=== PATIENT | male | born 1935 | race Caucasian/White ===

== ENCOUNTER 2025-01-24 11:18 | Day surgery (SDC) | payer MEDICARE, OTHER ==
[2025-01-20 15:33] VITALS: BMI 32.8
[~2025-01-24 11:18] MED LIST: SODIUM CHLORIDE 0.9% 1,000 ML IV SCH
[2025-01-24 11:52] VITALS: RESP 16; TEMP 97.6
[2025-01-24] MEDS: IV FLUID CONTINUATION 1,000 ML IV ONE (11:57)
[2025-01-24 11:59] LABS: Basophils # (A) 0.03 10*3/uL (0.00-0.10); Basophils % (A) 0.4 %; Eosinophils # (A) 0.09 10*3/uL (0.04-0.35); Eosinophils % (A) 1.1 %; HCT 35.2 % (39.6-50.0); HGB 11.1 g/dL (13.0-17.0); Lymphocytes # (A) 0.85 10*3/uL (0.90-5.00); Lymphocytes % (A) 10.4 %; MCH 29.8 pg (27.0-32.0); MCHC 31.5 g/dL (32.0-37.0); MCV 94.4 fL (80.0-97.0); Mean Platelet Volume 9.3 fL (9.5-12.2); Monocytes # (A) 0.94 10*3/uL (0.20-1.00); Monocytes % (A) 11.5 %; Neutrophils # (A) 6.22 10*3/uL (1.80-7.70); Neutrophils % (A) 76.2 %; Platelet Count 292 10*3/uL (140-440); RBC 3.73 10*6/uL (4.40-5.60); WBC 8.16 10*3/uL (4.50-10.00)
[2025-01-24 12:09] LABS: African American GFR (CKD) >90 (>60 ml/min/1.73 sqM); Anion Gap 12 mmol/L; Blood Urea Nitrogen 41 mg/dL (9-20); Calcium 8.9 mg/dL (8.4-10.2); Carbon Dioxide 24 mmol/L (22-30); Chloride 107 mmol/L (98-107); Glucose 108 mg/dL (74-99); Non-African American GFR(CKD) 78 (>60 ml/min/1.73 sqM); Potassium 4.9 mmol/L (3.5-5.1); Sodium 143 mmol/L (137-145)
[2025-01-24 12:22] LABS: INR 1.6 (<1.2); Prothrombin Time 16.1 sec (10.0-12.5)
[2025-01-24] MEDS: MIDAZOLAM 2 MG/2 ML VIAL IVP ONE (12:34)
[2025-01-24] MEDS: fentaNYL (PF) 50 MCG/ML 2 ML AMP IVP ONE (12:35)
[2025-01-24] MEDS: CLINDAMYCIN 900 MG in DEXTROSE 5% IN WATER 50 ML IVPB PRN (12:37)
[2025-01-24] MEDS: LIDOCAINE 1% INJ 10MG/ML (20 ML MDV) SQ ONE (12:41)
[2025-01-24] MEDS: CLINDAMYCIN 600 MG in SODIUM CHLORIDE 0.9% 250 ML IRRIGATION PRN (12:58)
[2025-01-24] MEDS ORDERED: ACETAMINOPHEN TAB 325 MG TAB PO PRN (13:36)
[2025-01-24 17:03] VITALS: BP 110/65; PULSE 61
--- NOTE | 2025-01-24 18:07 | P.PCN ---
Description of Procedure: CARDIOLOGY PROCEDURE NOTE [employer] Head Tender: Dr. Leandro Roper Procedure performed: Dual chamber permanent pacemaker generator change Site: Left subclavian Indications: Sick Sinus Syndrome, WILLIAM Complications: None Blood Loss: Minimal Description of Procedure: After the risks, benefits, and alternatives of the above-mentioned procedure was explained in detail with the patient, informed consent was obtained. The patient was taken to the cardiac catheterization suite where the left subclavian area was sterily prepped and draped in the usual fashion. Patient was given IV Versed and fentanyl for sedation. The skin over the existing pulse generator was infiltrated with lidocaine. An incision was made in the skin and was deepened until the pectoral fascia was exposed. Hemostasis was obtained. The existing pulse generator was pulled out of the pocket. The leads were disconnected and were checked for thresholds. The existing leads were then inserted into the appropriate position into the new generator. They were then secured with the setscrew provided. The leads and generator were inserted into the pocket with the leads posterior. The subcutaneous tissue was approximated utilizing #2.0 and 3.0 vicryl in an interrupted stitch fashion. The dermal layer was approximated utilizing #4.0 vicryl. The area was cleansed with sterile saline and dried. A sterile 4x4 dressing was applied and the patient was transferred to the post catheterization holding area in stable and satisfactory condition. The patient tolerated the procedure well. Generator Data Assistant Counsel: [employer] Brand: [id number] [place] XT DR [facility] Model #: [id number] Serial#: [id number] Right Atrial Bipolar Lead Data: Type: Active fixation lead Assistant Counsel: [employer] Model#: [id number] Serial Number: [id number] Right Ventricular Bipolar Lead Data: Type: Active fixation lead Assistant Counsel: [employer] Model #: [id number] Serial #: [id number] Stimulation Thresholds: Right atrial bipolar lead pacing and sensing thresholds Voltage: 1.0 V Impedance: 456 ohms P-wave sensing: - Right Ventricular bipolar lead pacing and sensing thresholds Pulse Width: 0.4ms Voltage: 0.5 volts Impedance: 722 ohms R-wave sensin mV Parameter Setting: Pacing mode is AAIR<=>DDDR Lower rate 60 bpm Upper rate 130 bpm Impressions: 1. Successful generator change of a dual chamber permanent pacemaker in the left pectoral site. Plan: 1. Routine post procedure care will be instituted as well as outpatient follow- up surveillance.
== END 2025-01-24 14:53 | disposition home or self-care (01) ==
LOC: CATHEP 11:18
PROVIDERS: ATTEND Internal Medicine
DX: I25.10 Atherosclerotic heart disease of native coronary artery without angina pectoris (principal); I49.5 Sick sinus syndrome; I48.19 Other persistent atrial fibrillation; R94.31 Abnormal electrocardiogram [ECG] [EKG]; I50.32 Chronic diastolic (congestive) heart failure; I11.0 Hypertensive heart disease with heart failure; E78.5 Hyperlipidemia, unspecified; Z45.010 Encounter for checking and testing of cardiac pacemaker pulse generator [battery]; Z88.0 Allergy status to penicillin; Z88.2 Allergy status to sulfonamides; Z79.02 Long term (current) use of antithrombotics/antiplatelets; Z79.899 Other long term (current) drug therapy
CPT/HCPCS: 33228; 80048; 85025; 85610; C1785; J2250; J2003; J3010; J0736 ×2